=== PATIENT | male | born 1990 | race African-American/Black ===

== ENCOUNTER 2020-12-11 00:09 | Emergency (ER) | payer SELFPAY ==
[~2020-12-11] VITALS: Ht 182.8 cm; Wt 129.9 kg
[2020-12-11 00:16] VITALS: BP 183/100
--- NOTE | 2020-12-11 00:26 | ED General ---
General Stated Complaint: HIGH BP History of Present Illness Date Seen by Provider: Dec 11, 2020 Time Seen by Provider: 00:21 Initial Comments 30-year-old male presents with concerns for elevated blood pressure. Patient has a history of high blood pressure is currently on 4 medications. Patient had a little bit of a headache at home. Reports he took his blood pressure and it was a systolic of 140s over 90s and got concerned. He then took a total of 8 times and it seemed to go up very time. On arrival is slightly elevated at 160s over 100s but he is not having any symptoms. Patient was just concerned and wanted to be evaluated. Allergies and Home Medications Patient Home Medication List Home Medication List Reviewed: Yes Review of Systems Review of Systems Constitutional: no symptoms reported EENTM: no symptoms reported Respiratory: no symptoms reported Cardiovascular: no symptoms reported Gastrointestinal: no symptoms reported Genitourinary: no symptoms reported Musculoskeletal: no symptoms reported Skin: no symptoms reported Psychiatric/Neurological: Headache Physical Exam Vital Signs Capillary Refill : Height, Weight, BMI Height: '" Weight: lbs. oz. kg; BMI Method: General Appearance: No Apparent Distress, WD/WN HEENT: PERRL/EOMI Respiratory: Lungs Clear, Normal Breath Sounds Cardiovascular: Regular Rate, Rhythm, No Edema Extremity: Normal Capillary Refill, Normal Inspection Neurologic/Psychiatric: Alert, Oriented x3, No Motor/Sensory Deficits, Normal Mood/Affect, yoker II-XII Norm as Tested Progress/Results/Core Measures Suspected Sepsis SIRS Temperature: Pulse: Respiratory Rate: Blood Pressure / Mean: Results/Orders Vital Signs/I&O Capillary Refill : Progress Note : Progress Note Patient with no symptoms at this time with slight elevation of systolic blood pressure. Discussed with him high blood pressure, symptoms and when to be worried. Also recommended he start doing some exercise to become more fit. Along with diet. Patient stable and discharged Departure Impression Primary Impression: Benign hypertension Disposition: HOME, SELF-CARE Condition: Stable Departure-Patient Inst. Referrals: NO,LOCAL PHYSICIAN (PCP/Family) Primary Care Physician Patient Instructions: Controlling Your Blood Pressure Through Lifestyle, High Blood Pressure in Adults Add. Discharge Instructions: Establish care with a primary care provider next week for recheck of symptoms and continued management SANCHEZ WOODS DO Dec 11, 2020 00:25
== END 2020-12-11 00:45 | disposition home or self-care (01) ==
LOC: ER FS 00:14
DX: I10 Essential (primary) hypertension (principal)
CPT/HCPCS: 99283